=== PATIENT | female | born 1980 | race Asian ===

== ENCOUNTER 2018-12-27 20:13 | Emergency (ER) | payer MEDICAID ==
[~2018-12-27] VITALS: Ht 157.5 cm; Wt 66.5 kg
[~2018-12-27 20:13] MED LIST: BETA15OI2 TP
[2018-12-27 20:15] VITALS: BP 140/64; PULSE 71; RESP 19; Ht 157.5 cm; Wt 66.5 kg
== END 2018-12-27 22:08 | disposition home or self-care (01) ==
LOC: FTE 20:13
DX: L30.1 Dyshidrosis [pompholyx] (principal)
CPT/HCPCS: 99283